=== PATIENT | male | born 1990 | race African-American/Black ===

== ENCOUNTER 2019-05-21 17:08 | Emergency (ER) | payer SELFPAY ==
[~2019-05-21] VITALS: Ht 175.3 cm; Wt 113.4 kg
[2019-05-21] MEDS ORDERED: METOCLOPRAMIDE HCL 5MG/ml INJ 2ml VIAL IV ONE (20:15)
[2019-05-21] MEDS ORDERED: PROPOFOL 10 MG/ML 20 ML IV ONE (20:15)
[2019-05-21] MEDS ORDERED: SODIUM CHLORIDE 0.9% 1,000 ML IV ONE (20:15)
[2019-05-21] MEDS ORDERED: FAMOTIDINE (10MG/ML) 2ML VL IV ONE (20:15)
[2019-05-21] MEDS ORDERED: KETOROLAC TROMETH 30 MG/ML 1ML VIAL IV ONE (20:45)
[2019-05-21] MEDS ORDERED: PROPOFOL 100 ML IV ONE (20:57)
[2019-05-21] MEDS ORDERED: KETOROLAC TROMETH 60MG/2ML VIAL ONE (20:57)
[2019-05-21 22:50] VITALS: BP 104/71
== END 2019-05-22 01:32 | disposition home or self-care (01) ==
LOC: EDBD 17:08 → ER 17:08
DX: S53.124A Posterior dislocation of right ulnohumeral joint, initial encounter (principal); S83.91XA Sprain of unspecified site of right knee, initial encounter; Z90.89 Acquired absence of other organs; X58.XXXA Exposure to other specified factors, initial encounter; Y93.66 Activity, soccer; Y99.8 Other external cause status; Y92.89 Other specified places as the place of occurrence of the external cause
CPT/HCPCS: 24600; 73070; 73080; 73562; 96374; 96375; 99152; 99153; 99285; J1885; J2704; J2765; J3490